=== PATIENT | female | born 1980 | race Two or more races ===

== ENCOUNTER 2020-10-04 01:44 | Emergency (ER) | payer OTHER ==
[2020-10-04 02:24] VITALS: BMI 27.3
[2020-10-04] MEDS ORDERED: ACETAMINOPHEN 1000 MG/100 ML VIAL (NON FORMULARY) IVPB ONE (02:31)
[2020-10-04] MEDS ORDERED: FAMOTIDINE 20 MG/50 ML IVPB 20 MG/50 ML MG IVPB ONE ×2 (02:32→03:47)
[2020-10-04] MEDS ORDERED: ONDANSETRON 4 MG/2 ML VIAL IVPB ONE (02:33)
[2020-10-04] MEDS ORDERED: SODIUM CHLORIDE 1,000 ML IV STA (02:33)
[2020-10-04 03:47] LABS: BASO % 0.5 % (0-2.0); EOS % 0.1 % (0-4.5); HEMATOCRIT 32.2 % (32.4-45.2); HEMOGLOBIN 10.7 GM/dL (10.7-15.3); LYMPH % 24.4 % (8-40); MCH 28.7 pg (25.7-33.7); MCHC 33.1 g/dl (32.0-36.0); MEAN CELL VOLUME 86.8 fl (80-96); MEAN PLT VOLUME 9.8 fl (7.5-11.1); MONO % 4.6 % (3.8-10.2); NEUT % 70.4 % (42.8-82.8); PLATELET COUNT 396 K/MM3 (134-434); RBC 3.72 M/mm3 (3.60-5.2); RDW 15.9 % (11.6-15.6); WHITE BLOOD COUNT 6.9 K/mm3 (4.0-10.0)
[2020-10-04] MEDS ORDERED: ACETAMINOPHEN INJECTION 100 ML IVPB ONE (03:47)
[2020-10-04] MEDS ORDERED: ONDANSETRON 4 MG/2 ML VIAL ONE ×2 (03:47→03:48)
[2020-10-04 04:05] LABS: CALCIUM 9.9 mg/dL (8.5-10.1)
[2020-10-04 04:06] LABS: BLOOD UREA NITROGEN 13.2 mg/dL (7-18)
[2020-10-04 04:08] LABS: CREATININE 0.9 mg/dL (0.55-1.3)
[2020-10-04 04:10] LABS: BILIRUBIN,TOTAL 0.6 mg/dL (0.2-1); TOT PROT 8.2 g/dl (6.4-8.2)
[2020-10-04] MEDS ORDERED: ONDANSETRON 4 MG/2 ML VIAL IVPUSH ONE (05:37)
[2020-10-04] MEDS ORDERED: METOCLOPRAMIDE HCL INJECTION 10 MG/2 ML VIAL IVPUSH ONE (05:42)
[2020-10-04] MEDS ORDERED: METOCLOPRAMIDE HCL INJECTION 10 MG/2 ML VIAL ONE (05:51)
[2020-10-04 06:55] VITALS: BP 137/71; PULSE 79; TEMP 98.7
== END 2020-10-04 07:37 | disposition home or self-care (01) ==
LOC: JER 01:44
PROC: 3E033NZ Introduction of Analgesics, Hypnotics, Sedatives into Peripheral Vein, Percutaneous Approach (ICD-10-PCS; principal; 2020-10-04)
PROC: 3E033GC Introduction of Other Therapeutic Substance into Peripheral Vein, Percutaneous Approach (ICD-10-PCS; 2020-10-04)
PROC: 3E0337Z Introduction of Electrolytic and Water Balance Substance into Peripheral Vein, Percutaneous Approach (ICD-10-PCS; 2020-10-04)
DX: R10.9 Unspecified abdominal pain (principal); R11.10 Vomiting, unspecified
CPT/HCPCS: 36415; 74177-TC; 80053; 80307; 82550; 82553; 83690; 84484; 84703; 85025; 93005; 93010; 99285-25; J0131; Q9967

== ENCOUNTER 2020-10-06 12:42 | Emergency (ER) | payer OTHER ==
[2020-10-06 12:56] VITALS: BP 136/83; PULSE 54; TEMP 98.9; BMI 26.4
[2020-10-06] MEDS ORDERED: FAMOTIDINE 20 MG/50 ML IVPB 20 MG/50 ML MG IVPB ONE ×3 (13:45→14:33)
[2020-10-06] MEDS ORDERED: MAG HYDROX/AL HYDROX/SIMETH -MYLANTA- ORAL SUSPENSION PO ONE (13:45)
[2020-10-06] MEDS ORDERED: ACETAMINOPHEN 1000 MG/100 ML VIAL (NON FORMULARY) IVPB ONE (13:45)
[2020-10-06] MEDS ORDERED: METOCLOPRAMIDE HCL INJECTION 10 MG/2 ML VIAL IVPB ONE (13:45)
[2020-10-06] MEDS ORDERED: METOCLOPRAMIDE HCL INJECTION 10 MG/2 ML VIAL ONE ×2 (13:53→14:33)
[2020-10-06] MEDS ORDERED: SODIUM CHLORIDE 1,000 ML IV STA (13:53)
[2020-10-06] MEDS ORDERED: POTASSIUM CHLORIDE ORAL LIQUID 20 MEQ/15 ML PO ONE (13:53)
[2020-10-06] MEDS ORDERED: ACETAMINOPHEN INJECTION 100 ML IVPB ONE (13:54)
[2020-10-06] MEDS ORDERED: MAG HYDROX/AL HYDROX/SIMETH 30 ML UNIT-DOSE CUP ONE (13:54)
[2020-10-06] MEDS ORDERED: POTASSIUM CHLORIDE ORAL LIQUID 20 MEQ/15 ML ONE (14:36)
[2020-10-06 14:42] LABS: EPI CELLS >36 /uL (0-25.1); HCG,QUALITATIVE URINE Negative; HYALINE CASTS 3 /uL (0-3.1); PH,URINE 6.5 (5.0-8.0); URINE APPEARANCE CLOUDY; URINE BACTERIA 1487 /uL (0-1359); URINE BILIRUBIN NEGATIVE (NEGATIVE); URINE COLOR YELLOW; URINE GLUCOSE (UA) NEGATIVE (NEGATIVE); URINE KETONE 4+ (NEGATIVE); URINE LEUK ESTERASE TRACE (NEGATIVE); URINE NITRITE NEGATIVE (NEGATIVE); URINE PROTEIN TRACE (NEGATIVE); URINE RBC 73 /uL (0-23.9); URINE WBC 75 /uL (0-25.8)
[2020-10-06 14:47] LABS: COCAINE, UR NEGATIVE ng/ml (CUTOFF=300); METHADONE, UR NEGATIVE ng/ml (CUTOFF=300); URINE BARBITURATES NEGATIVE ng/ml (CUTOFF=200)
[2020-10-06 14:48] LABS: PHENCYCLIDINE,URINE NEGATIVE ng/ml (CUTOFF=25)
[2020-10-06 14:50] LABS: OPIATES, URI NEGATIVE ng/ml (CUTOFF=300); URINE AMPHETAMINES NEGATIVE ng/ml (CUTOFF=500); URINE BENZODIAZEPINES NEGATIVE ng/ml (CUTOFF=200)
[2020-10-06 15:43] LABS: BASO % 0.4 % (0-2.0); EOS % 0.3 % (0-4.5); HEMATOCRIT 30.2 % (32.4-45.2); HEMOGLOBIN 10.3 GM/dL (10.7-15.3); LYMPH % 33.1 % (8-40); MCH 29.2 pg (25.7-33.7); MEAN CELL VOLUME 85.9 fl (80-96); MONO % 7.1 % (3.8-10.2); NEUT % 59.1 % (42.8-82.8); PLATELET COUNT 386 K/MM3 (134-434); RBC 3.52 M/mm3 (3.60-5.2); RDW 15.4 % (11.6-15.6); WHITE BLOOD COUNT 5.9 K/mm3 (4.0-10.0)
[2020-10-06 15:59] LABS: POTASSIUM 3.5 mmol/L (3.5-5.1)
[2020-10-06 16:02] LABS: ALBUMIN 3.7 g/dl (3.4-5.0); BLOOD UREA NITROGEN 13.8 mg/dL (7-18); CALCIUM 8.6 mg/dL (8.5-10.1)
[2020-10-06 16:05] LABS: CREATININE 0.8 mg/dL (0.55-1.3)
[2020-10-06 16:07] LABS: BILIRUBIN,TOTAL 0.7 mg/dL (0.2-1); TOT PROT 7.2 g/dl (6.4-8.2)
== END 2020-10-06 16:15 | disposition home or self-care (01) ==
LOC: JER 12:42
PROC: 3E0333Z Introduction of Anti-inflammatory into Peripheral Vein, Percutaneous Approach (ICD-10-PCS; principal; 2020-10-06)
PROC: 3E033GC Introduction of Other Therapeutic Substance into Peripheral Vein, Percutaneous Approach (ICD-10-PCS; 2020-10-06)
PROC: 3E033GC Introduction of Other Therapeutic Substance into Peripheral Vein, Percutaneous Approach (ICD-10-PCS; 2020-10-06)
PROC: 3E0337Z Introduction of Electrolytic and Water Balance Substance into Peripheral Vein, Percutaneous Approach (ICD-10-PCS; 2020-10-06)
DX: R10.13 Epigastric pain (principal)
CPT/HCPCS: 36415; 80053; 80307; 81003; 83690; 84703; 85025; 87086; 99284-25; J0131